=== PATIENT | male | born 1990 | race Hispanic/Latino ===

== ENCOUNTER 2019-02-04 22:36 | Emergency (ER) | payer OTHER ==
[2019-02-04] MEDS ORDERED: KETOROLAC TROMETHAMINE 60 MG/2 ML VIAL ONE (23:14)
[2019-02-04] MEDS ORDERED: LIDOCAINE HCL 2% VISCOUS 15 ML UDCUP ONE (23:14)
[2019-02-04] MEDS ORDERED: AMOXICILLIN 500 MG CAPSULE PO ONE (23:14)
== END 2019-02-04 23:32 | disposition home or self-care (01) ==
LOC: EDH 22:36
DX: K02.9 Dental caries, unspecified (principal); Z87.891 Personal history of nicotine dependence
CPT/HCPCS: 96372; 99283; J1885